=== PATIENT | male | born 1985 | race Caucasian/White ===

== ENCOUNTER → 2020-09-07 16:34 | Outpatient (CLI) | payer OTHER, SELFPAY ==
--- NOTE | 2020-09-07 16:43 | XR_ITS ---
PROCEDURE: XR CHEST 2V CLINICAL HISTORY: HEMOPTYSIS COMPARISON: No exams were available for comparison FINDINGS: The cardiomediastinal silhouette and pulmonary vascularity are within normal limits. There does appear to be an azygos fissure is a normal variant. There is slight increased density medial to the fissure in the right upper lobe medially which could be due to an area of volume loss or consolidation. The remaining lungs are clear. No acute bony abnormalities. IMPRESSION: Possible volume loss or consolidation within the right upper lobe medial to the azygos fissure. Consider follow-up to confirm resolution. Dictated by: Joshua Gómez MD 09/07/2020 17:00 Joshua Gómez MD in [place] 09/07/2020 17:00
== END ==
PROVIDERS: PCP Nurse Practitioner Family; Visit Provider Nurse Practitioner Family
DX: R04.2 Hemoptysis (principal)
CPT/HCPCS: 71046

== ENCOUNTER 2020-09-09 11:54 | Inpatient (IN) | payer BC, SELFPAY ==
[2020-09-09] VITALS (12 sets, daily range): BP systolic 106–138; BP diastolic 65–87; PULSE 66–90; RESP 16–20; TEMP 36.8–37.6; O2SAT 90–97; BMI 27.9; BMI 27.8
--- NOTE | 2020-09-09 12:08 | CT_ITS ---
PROCEDURE: CT ANGIO CHEST CLINCIAL INDICATION: PE? Shortness of air and cough, pneumonia, hemoptysis COMPARISON: CR XR CHEST 2V from 09/07/2020 TECHNIQUE: IV Contrast: 70ML Isovue 370 Axial images obtained with sagittal and coronal reformats. All CT scans at the facility use one or more dose reduction, viz: automated exposure control, ma/kV adjustment per patient size (including targeted exams where dose is matched to indication, i.e. head), or iterative reconstruction technique. FINDINGS: HEART AND MEDIASTINAL STRUCTURES: There is scattered small mediastinal and hilar lymph nodes. No evidence of pulmonary embolus, aortic aneurysm, or aortic dissection. LUNGS AND PLEURAL SPACES: There is diffuse ground-glass attenuation of both lungs upper and lower lobes. Right upper lobe has a somewhat cobblestone appearance. No pleural effusions. There is an azygos fissure is a normal variant.. In the left lung base there is a irregular parenchymal opacity and could be due to an area of atelectasis or scarring. BONY STRUCTURES: No acute bony abnormalities apparent. UPPER ABDOMEN: Unremarkable. ADDITIONAL FINDINGS: No other significant abnormalities. IMPRESSION: Diffuse ground-glass attenuation of the lungs with a somewhat cobblestone appearance of the right upper lobe. Diffuse pneumonia, viral pneumonia, Covid19 pneumonia, pulmonary edema, hypersensitivity pneumonitis, ARDS and other less common entities considered. No evidence of pulmonary embolus. Dictated by: Joshua Gómez MD 09/09/2020 12:48 Joshua Gómez MD in [place] 09/09/2020 12:48
--- NOTE | 2020-09-09 12:09 | HMH.EDSOB ---
ED Disposition Clinical Impression: Viral pneumonia Disposition: Admitted As Inpatient Condition on Discharge: Good - Critical Care Critical Care Time: No Attestation: On , the high probability of a clinically significant, sudden or life threatening deterioration of the following system(s) required my full and direct attention, intervention and personal management. The time I documented below is in addition to time spent performing reported procedures but includes the following listed in this critical care notation. Medical Decision Making - Medical Records Medical records reviewed: Yes: I reviewed the patient's medical records. - David Inquiry Pt receiving controlled substance: No Vital Signs: 09/09/20 11:55 09/09/20 13:00 09/09/20 13:30 Temperature 98.2 F Temperature Source Oral Pulse Rate 83 78 Pulse Rate [Left Radial] 83 Respiratory Rate 20 20 20 Blood Pressure 138/83 135/81 Blood Pressure [Right Arm] 122/75 Blood Pressure Mean 96 94 Blood Pressure Mean [Right Arm] 90 Blood Pressure Source [Right Arm] Automatic Cuff Blood Pressure Position [Right Arm] Sitting 02 Sat by Pulse Oximetry 91 L 96 96 Oxygen Delivery Method Room Air - Lab Data Lab results reviewed: Yes: I reviewed the patient's lab results. Lab Results 09/09/20 12:15: WBC 10.9 H, RBC 4.73, Hgb 13.8 L, Hct 42.8, MCV 90.4, MCH 29.3, MCHC 32.4, RDW 12.9, Plt Count 380, MPV 7.3 L, Neut % (Auto) 74.1, Lymph % (Auto) 17.4, [place] % (Auto) 5.1, Eos % (Auto) 2.9, Baso % (Auto) 0.5, Neut # (Auto) 8.1 H, Lymph # (Auto) 1.9, [place] # (Auto) 0.6, Eos # (Auto) 0.3, Baso # (Auto) 0.1 09/09/20 12:15: Sodium 141, Potassium 4.0, Chloride 107, Carbon Dioxide 28, Anion Gap 10.0, BUN 10, Creatinine 1.00, Estimated Creat Clear 130, Estimated GFR 86, Est GFR ( Amer) 103, Glucose 107 H, Calcium 8.9 Result diagrams: 09/09/20 12:15 09/09/20 12:15 Orders (Tests/Meds): ED MEDICATIONS Discontinued Medications Generic Name Dose Route Start Last Admin Trade Name Laurie PRN Reason Stop Dose Admin Iopamidol 70 ml 09/09/20 12:24 09/09/20 12:25 Iopamidol-370 (76%);100ml Bottle IV 09/09/20 12:25 70 ml ONCE ONE Administration Sodium Chloride 10 ml 09/09/20 12:24 09/09/20 12:25 Sodium Chloride 0.9% 10ml Syr (Rad Only) IV 09/09/20 12:25 10 ml ONCE ONE Administration Sodium Chloride 50 ml 09/09/20 12:24 09/09/20 12:26 0.9 % Sodium Chloride 50 Ml Vial IV 09/09/20 12:25 50 ml ONCE ONE Administration ORDERS Category Date Time Status Covid-19 Nasal PCR ([facility]) Routine Lab 09/09/20 12:15 Received - CT Data CT Scan: Chest Time Received: 13:[address] Reviewed: Yes: I have reviewed the patient's CT results Findings Narrative: Diffuse viral pneumonia, no pulmonary embolus Medical Decision Narrative: Patient with no clinically significant metabolic derangement. He is 89% on room air at rest, is now requiring oxygen. He is not a smoker and has no known history of pulmonary pathology. CT scan of the chest shows no pulmonary embolus, but does suggest diffuse viral pneumonia. Will need to be admitted for pulmonary toilet and further observation. I discussed this case with Dr. Walden and have placed a pulmonology consult per his request. Resp/SOB HPI - General Chief Complaint: Shortness of Breath/Dyspnea Stated Complaint: soa, dx w pneumonia Time Seen by Provider: 09/09/20 12:09 Mode of Arrival: Ambulatory Limitations: No Limitations Description of Symptoms (Recalled from ER Triage Doc. by RN): c/o soa and coughing blood for a few days. Was seen at his pcp 2 days ago and dx with PNA. Sent for a ct scan to r/o blood clot from the covid shot he recieved. - History of Present Illness This is a 34-year-old male with no significant past medical history who presents to the emergency department for 1 week of cough, shortness of breath and intermittent fever. He was seen prior to his visit today a few days a
[2020-09-09 12:26] LABS: Basophils # 0.1 K/mm3 (0-0.2); Basophils % 0.5 % (0.1-2.0); Eosinophils # 0.3 K/mm3 (0.0-0.4); Eosinophils % 2.9 % (0.1-12.0); Hematocrit 42.8 % (42.0-52.0); Hemoglobin 13.8 g/dL (14.1-18.0); Lymphocytes # 1.9 K/mm3 (0.7-4.5); Lymphocytes % 17.4 % (10-50); Mean Corpuscular HGB Conc 32.4 g/dL (31.8-35.4); Mean Corpuscular Hemoglobin 29.3 pg (27.0-31.2); Mean Corpuscular Volume 90.4 fl (80-94); Mean Platelet Volume 7.3 fl (7.4-10.4); Monocytes # 0.6 K/mm3 (0.1-1.0); Monocytes % 5.1 % (1.7-9.3); Neutrophils # 8.1 K/mm3 (1.8-7.8); Neutrophils % 74.1 % (37.0-80.0); Platelet Count 380 K/mm3 (142-424); Red Blood Count 4.73 M/mm3 (4.60-6.20); Red Cell Distribution Width 12.9 % (11.5-17.5); White Blood Count 10.9 K/mm3 (4.8-10.8)
[2020-09-09 12:36] LABS: Blood Urea Nitrogen 10 mg/dl (9-20); Calcium 8.9 mg/dl (8.4-10.2); Carbon Dioxide 28 mmol/L (22.0-30.0); Chloride 107 mmol/L (98-107); Creatinine Clearance Estimated 130 mL/min (50-200); Estimated Glomerular Filt Rate 86 ml/min (>60); GFR (African American) 103 ML/MIN (>60); Glucose 107 mg/dl (74-100); Sodium 141 mmol/L (136-145)
--- NOTE | 2020-09-09 13:23 | PC.NURSE ---
called lab for time limit on covid swab they advised 2 hrs.
--- NOTE | 2020-09-09 13:52 | PC.NURSE ---
Dr Wright spoke with Dr Walden
--- NOTE | 2020-09-09 15:30 | PC.NURSE ---
Pt and family informed that pt does not have covid. states that she is very concerned because his ct scan showed pulmonary edema and she is wanting to see if the backfiller is going to see him and have a possibility of being checked for histo. aware.
--- NOTE | 2020-09-09 16:06 | HMH.PULMCON ---
*Admission Date: 09/09/20 *Reason for consult:: Acute hypoxic respiratory failure *History of present illness: Mr. Mi is a 34-year-old male prior smoker around 96-[id number]-[id number] smoking/smoking presented to the emergency department with worsening hypoxic respiratory failure along with worsening cough and intermittent hemoptysis and pulmonary was called for further management. [facility] History I have reviewed the patient's past medical history: Yes Medical History: Denies:: Diabetes Mellitus Type 1, Diabetes Mellitus Type 2, Seizures *Have you ever received a pneumonia vaccine?: No *Have you received a flu vaccine this season?: No Other Medical History: Reports: Other Laterality Cases: Left: Other (left arm fracture c placement of pins and screws -2000) Other Surgeries: Yes: Other Amputation: No Fractures: Yes - *Social History Smoking Status: Former smoker Alcohol Intake: current Alcohol Intake Frequency:: a few times a week Substance Use Type: unknown *Occupational Status:: student *Travel in the last 8 weeks: None Family Hx:: Non-contributory ROS - Cons Denies anorexia, Denies body ache(s) - Eyes Denies blind spots, Denies blurry vision - ENT Denies difficulty swallowing - Card Reports shortness of breath, Reports shortness of breath with activity, Denies chest pain at rest - Resp Respiratory: Reports chest congestion, Reports cough, Reports dyspnea on exertion, Reports coughing up blood, Reports pain on inspiration - GI Gastrointestingal: Denies: abdominal pain - [place] Musculoskeletal: Denies back pain, Denies deformity Meds Home Medications Medication Instructions Recorded Confirmed Type Amoxicillin/Potassium Clav 875 mg PO BID 09/09/20 09/09/20 History [Amox-Clav 875-125 mg Tablet] Allergies Allergy/AdvReac Type Severity Reaction Status Date / Time medical tape Allergy rash Uncoded 02/03/19 10:55 around site Exam - Constitutional Constitutional:: Present: comfortable, healthy appearing - HENMT Exam HENMT: Present: normocephalic, atraumatic - Eye Exam Eyes:: Present: normal appearance both eyes and related structures - Neck Exam Neck:: Present: normal visual inspection - Respiratory Exam Respiratory:: Present: able to speak in complete sentences, respiratory distress, crackles - Cardiovascular Exam Cardiac:: Present: S1, S2 - GI Exam GI:: Present: soft - Skin Exam Skin: Present: warm, no rash - Neurological Exam Neurological: Present: awake, normal cognition - Extremities Exam Extremities: Present: no cyanosis, no clubbing, no edema Internal Medicine - CN: Reslt - Labs CBC & Chem 7: 09/09/20 12:15 09/09/20 12:15 Labs: Short CBC 09/09/20 Range/Units 12:15 WBC 10.9 H (4.8-10.8) K/mm3 Hgb 13.8 L (14.1-18.0) g/dL Hct 42.8 (42.0-52.0) % Plt Count 380 (142-424) K/mm3 BMP 09/09/20 12:15 Sodium 141 Potassium 4.0 Chloride 107 Carbon Dioxide 28 BUN 10 Creatinine 1.00 Glucose 107 H Calcium 8.9 Assessment and Plan - Assessment and plan all Dx Assessment and Plan for all problems:: #Acute hypoxic respiratory failure: #Atypical pneumonia: Mr. Mi is a 34-year-old male prior smoker around 53-[id number]-pzao smoking/smoking presented to the emergency department with worsening hypoxic respiratory failure. Further questioning patient stated that he is explained symptoms for the last 5 days gradually getting worse with worsening shortness of breath and intermittent coughing up blood mixed with sputum. He also complains of near syncope episode yesterday. They had been checking this patient saturation at home during exertion and they were around 80%. Patient currently saturating 90 to 92% at rest today. Patient admits sick contacts in the family has been diagnosed with adenovirus recently. Since family is also concerned about fungal exposure as they were remodeling an old house currently. ILD review of systems negat
--- NOTE | 2020-09-09 16:09 | PC.NURSE ---
Report given Elton DORADO
[2020-09-09 16:38] LABS: Adenovirus,PCR Not Detected (NotDetected); Bordetella Pertussis Not Detected (NotDetected); Chlamydophila Pneumoniae, PCR Not Detected (NotDetected); Coronavirus 229E Not Detected (NotDetected); Coronavirus NL63 Not Detected (NotDetected); Coronavirus OC43 Not Detected (NotDetected); Coronovirus HKU1,PCR Not Detected (NotDetected); Human Metapneumovirus Not Detected (NotDetected); Influenza A, PCR Not Detected (NotDetected); Influenza AH1, 2009 Not Detected (NotDetected); Influenza AH1, PCR Not Detected (NotDetected); Influenza AH3,PCR Not Detected (NotDetected); Influenza B, PCR Not Detected (NotDetected); Mycoplasma Pneumoniae, PCR Not Detected (NotDetected); Parainfluenza 1, PCR Not Detected (NotDetected); Parainfluenza 2, PCR Not Detected (NotDetected); Parainfluenza 3, PCR Not Detected (NotDetected); Parainfluenza 4, PCR Not Detected (NotDetected); Respiratory Syncytial Virus Not Detected (NotDetected)
--- NOTE | 2020-09-09 17:15 | HMH.HP ---
*Admission Date: 09/09/20 *Chief complaint: /Shortness of air *History of present illness: Mr. Mi is a 34-year-old male prior smoker around 90-[id number]-rinl smoking/smoking presented to the emergency department with worsening hypoxic respiratory failure. Further questioning patient stated that he is explained symptoms for the last 5 days gradually getting worse with worsening shortness of breath and intermittent coughing up blood mixed with sputum. He also complains of near syncope episode yesterday. They had been checking this patient saturation at home during exertion and they were around 80%. Patient currently saturating 90 to 92% at rest today. Patient admits sick contacts in the family has been diagnosed with adenovirus recently. Since family is also concerned about fungal exposure as they were remodeling an old house currently. ILD review of systems negative. Denies any family history of autoimmune disorders. Denies any hematuria. Above note per pulmonary. Agree with note. Patient presented to our office recently with cough and congestion, treated for viral infection, not improving. Chest x-ray with infiltrate, worsening exercise tolerance and dyspnea, instructed to go to the emergency department. Admitted as noted above. [facility] History I have reviewed the patient's past medical history: Yes Medical History: Denies:: Diabetes Mellitus Type 1, Diabetes Mellitus Type 2, Seizures *Have you ever received a pneumonia vaccine?: No *Have you received a flu vaccine this season?: Yes Other Medical History: Reports: Other Laterality Cases: Left: Other Other Surgeries: Yes: Other Amputation: No Fractures: Yes - *Social History Last grade of school completed: Advanced degree Smoking Status: Former smoker Smoking End Date: 04/23/2017 Alcohol Intake: current Alcohol Intake Frequency:: a few times a week Substance Use Type: unknown *Occupational Status:: unemployed Housing: house Household Members: spouse *Travel in the last 8 weeks: None Family Hx:: Cancer, Hyperlipidemia Review of Systems - Review of Systems Review of systems:: pertinent systems reviewed and negative unless documented below Meds Home Medications Medication Instructions Recorded Confirmed Type Amoxicillin/Potassium Clav 875 mg PO BID 09/09/20 09/09/20 History [Amox-Clav 875-125 mg Tablet] Allergies Allergy/AdvReac Type Severity Reaction Status Date / Time medical tape Allergy rash Uncoded 02/03/19 10:55 around site Exam Vital signs and Labs for Last 24 Hours: Temp Pulse Resp BP Pulse Ox 98.6 F 66 16 125/83 96 09/09/20 16:35 09/09/20 16:35 09/09/20 16:35 09/09/20 16:35 09/09/20 15:15 Laboratory Results - last 24 hr 09/09/20 12:15: WBC 10.9 H, RBC 4.73, Hgb 13.8 L, Hct 42.8, MCV 90.4, MCH 29.3, MCHC 32.4, RDW 12.9, Plt Count 380, MPV 7.3 L, Neut % (Auto) 74.1, Lymph % (Auto) 17.4, [place] % (Auto) 5.1, Eos % (Auto) 2.9, Baso % (Auto) 0.5, Neut # (Auto) 8.1 H, Lymph # (Auto) 1.9, [place] # (Auto) 0.6, Eos # (Auto) 0.3, Baso # (Auto) 0.1 09/09/20 12:15: Sodium 141, Potassium 4.0, Chloride 107, Carbon Dioxide 28, Anion Gap 10.0, BUN 10, Creatinine 1.00, Estimated Creat Clear 130, Estimated GFR 86, Est GFR ( Amer) 103, Glucose 107 H, Calcium 8.9 I & O for Last 24 hours: Intake & Output 09/07/20 09/08/20 09/09/20 09/10/20 11:59 11:59 11:59 11:59 Weight 195 lb 194 lb 8 oz Microbiology Reports for the Last 24 Hours: Microbiology 09/09/20 12:15 Nasopharyngeal Coronavirus COVID-19 PCR - Final - Constitutional no acute distress - *Routine HEENT Exam Head: Present: normocephalic Eye: Present: EOMI, PERRL ENT: Present: mucous membranes moist - *Routine Neck Exam Present: supple. Absent: lymphadenopathy - *Routine Respiratory Exam Present: rhonchi, wheezes Comments: In upper lobes - *Routine Cardiovascular Exam Present: RRR - *Routine Abdominal Exam Present: soft, normoactive dennis
[2020-09-09 17:21] LABS: INR 0.98 (0.9-1.1); Prothrombin Time 11.6 seconds (10.1-12.5)
[2020-09-09 17:45] LABS: Urea Nitrogen,Urine Random 468 mg/dl (Not Estab.)
[2020-09-09 17:50] LABS: Rhinovirus/Enterovirus Detected (NotDetected)
[2020-09-10] VITALS (19 sets, daily range): BP systolic 99–145; BP diastolic 45–70; PULSE 64–79; RESP 16–19; TEMP 36.1–37.7; O2SAT 89–95; BMI 28.0
--- NOTE | 2020-09-10 04:47 | PC.NURSE ---
pt alert and oriented. independent with care. pt stated one episode of bad coughing. 3lnc in use at this time. o2 sat remain above 90%. pt showered this shift. iv SL. temp has slightly treaded up and prn med to be given per jun. all other vss. call light in reach. will continue to monitor
--- NOTE | 2020-09-10 04:49 | PC.NURSE ---
all charting and care given by coleman padron was supervised by bj liang
--- NOTE | 2020-09-10 07:19 | HMH.PHAINT ---
Used list from [facility] to clarify home medication list
--- NOTE | 2020-09-10 07:21 | P.CONPHA_ITS ---
[facility] Pharmacy VTE Monitoring - Patient Demographics Admission date: 09/10/20 Report Date: 09/10/20 Time: 07:21 Allergies/Adverse Reactions: Patient Allergies medical tape Allergy (Uncoded 02/03/19 10:55) rash around site Height: 1.78 m Weight: 88.904 kg Patient Problems: Current Active Problems Viral pneumonia (Acute) - VTE Risk Labs: VTE Related Lab Results Hgb 13.8 g/dL (14.1-18.0) L 09/09/20 12:15 Hct 42.8 % (42.0-52.0) 09/09/20 12:15 Plt Count 380 K/mm3 (142-424) 09/09/20 12:15 PT 11.6 seconds (10.1-12.5) 09/09/20 16:49 INR 0.98 (0.9-1.1) 09/09/20 16:49 BUN 10 mg/dl (9-20) 09/09/20 12:15 Creatinine 1.00 mg/dl (0.66-1.25) 09/09/20 12:15 Estimated Creat Clear 130 mL/min (50-200) 09/09/20 12:15 Clinical Trial Participant: No - Prophylaxis VTE Prophylaxis Ordered?: Yes Types of VTE Prophylaxis: TEDS Knee High
--- NOTE | 2020-09-10 08:23 | P.PN_ITS ---
Internal Medicine - PN: Rosa *Date: 09/10/20 *Time: 08:23 Interval history: Patient rested well overnight, did have a low-grade temperature. Results of labs reviewed. Exam Vital signs and Labs for Last 24 Hours: Temp Pulse Resp BP Pulse Ox 99.8 F H 71 18 99/45 L 94 L 09/10/20 03:44 09/10/20 03:44 09/10/20 03:44 09/10/20 03:44 09/10/20 08:00 Laboratory Results - last 24 hr 09/09/20 12:15: WBC 10.9 H, RBC 4.73, Hgb 13.8 L, Hct 42.8, MCV 90.4, MCH 29.3, MCHC 32.4, RDW 12.9, Plt Count 380, MPV 7.3 L, Neut % (Auto) 74.1, Lymph % (Auto) 17.4, [place] % (Auto) 5.1, Eos % (Auto) 2.9, Baso % (Auto) 0.5, Neut # (Auto) 8.1 H, Lymph # (Auto) 1.9, [place] # (Auto) 0.6, Eos # (Auto) 0.3, Baso # (Auto) 0.1 09/09/20 12:15: Sodium 141, Potassium 4.0, Chloride 107, Carbon Dioxide 28, Anion Gap 10.0, BUN 10, Creatinine 1.00, Estimated Creat Clear 130, Estimated GFR 86, Est GFR ( Amer) 103, Glucose 107 H, Calcium 8.9 09/09/20 12:15: Chlamy pneumoniae PCR Not detected, Adenovirus (PCR) Not detected, B. pertussis DNA (PCR) Not detected, Coronavirus OC43 (PCR) Not detected, Coronavirus HKU1 (PCR) Not detected, Coronavirus 229E (PCR) Not detected, Coronavirus NL63 (PCR) Not detected, Human Metapneumovir PCR Not detected, Influenza A (H1) PCR Not detected, Influ A (H1N1/09) PCR Not detected, Influenza A (H3) PCR Not detected, Influenza Type A (PCR) Not detected, Influenza Type B (PCR) Not detected, M. pneumoniae (PCR) Not detected, Parainfluenza 1 (PCR) Not detected, Parainfluenza 2 (PCR) Not detected, Parainfluenza 3 (PCR) Not detected, Parainfluenza 4 (PCR) Not detected, RSV (PCR) Not detected, Entero/Rhino (PCR) Detected A 09/09/20 16:49: PT 11.6, INR 0.98 09/09/20 17:05: Ur Random Urea Nitrogn 468 I & O for Last 24 hours: Intake & Output 09/07/20 09/08/20 09/09/20 09/10/20 11:59 11:59 11:59 11:59 Intake Total 740 / 740 Balance 740 / 740 Weight 195 lb 196 lb Microbiology Reports for the Last 24 Hours: Microbiology 09/09/20 17:08 Sputum - Expectorated Sputum Gram Stain - Final 09/09/20 12:15 Nasopharyngeal Coronavirus COVID-19 PCR - Final Narrative: Patient is comfortable, noncyanotic on oxygen. Alert, oriented. ENT exam clear. Heart rate regular. Lungs have rhonchi and crackles in the right upper lung field. However aerating fairly symmetrically. No rash, abdomen soft, neurologically intact. Assessment and Plan (1) Viral pneumonia Status: Acute Category: Medical Code(s): J12.9 - Viral pneumonia, unspecified - Assessment and plan all Dx Assessment and Plan for all problems:: Stable. Await bronchoscopy. PCR testing shows rhino/enterovirus.
--- NOTE | 2020-09-10 10:01 | HMH.PULMPN ---
Internal Medicine - PN: Subj *Date: 09/10/20 *Time: 10:01 Interval history: No acute respiratory vents overnight. Exam - Constitutional Constitutional:: Present: no acute distress, comfortable - HENMT Exam HENMT: Present: normocephalic, atraumatic - Eye Exam Eyes:: Present: normal appearance both eyes and related structures - Neck Exam Neck:: Present: normal visual inspection, thyroid normal - Respiratory Exam Respiratory:: Present: able to speak in complete sentences, no respiratory distress, normal respiratory effort, crackles. Absent: accessory muscle use, wheezing - Cardiovascular Exam Cardiac:: Present: S1, S2 - GI Exam GI:: Present: soft, no hepatosplenomegaly - Skin Exam Skin: Present: warm, no rash, dry - Neurological Exam Neurological: Present: alert, awake, normal cognition - Extremities Exam Extremities: Present: no cyanosis, no clubbing, no edema - Psychiatric Exam Psychiatric: Present: normal affect Assessment and Plan (1) Viral pneumonia Status: Acute Category: Medical Code(s): J12.9 - Viral pneumonia, unspecified - Assessment and plan all Dx Assessment and Plan for all problems:: #Acute hypoxic respiratory failure: #Atypical pneumonia: #Viral pneumonia: Mr. Mi is a 34-year-old male prior smoker around 45-cmwb-pcge smoking/smoking presented to the emergency department with worsening hypoxic respiratory failure. Experiencing symptoms for the last 5 days prior to presentation, gradually getting worse with worsening shortness of breath and intermittent coughing up blood mixed with sputum. Patient admits sick contacts in the family has been diagnosed with adenovirus recently. Since family is also concerned about fungal exposure as they were remodeling an old house currently. ILD review of systems negative. Denies any family history of autoimmune disorders. Denies any hematuria. Denies any inhalational exposure. COVID-19 PCR resulted negative. Patient received his vaccination. No peripheral eosinophilia CTA performed here reviewed today did not show any evidence of pulmonary them showed bilateral diffuse groundglass opacities with evidence of traction bronchiectasis in the lower lobes. Respiratory viral PCR positive for entero-/rhinovirus. Patient denies any new respiratory complaints. Patient still requiring oxygen supplementation to maintain his saturations above 90%. Patient's current acute hypoxic respiratory failure is likely from viral pneumonia. Plan: -Continue ceftriaxone and doxycycline, can de-escalate levofloxacin on discharge awaiting BAL Gram stain to complete 5 day course (sputum Gram stain showed rare gram-positive cocci in pairs and clusters) - Comprehensive respiratory viral panel - F / Urine histoplasma antigen - F/U BC x2 - Urinalysis with microscopic. - F/U Basic autoimmune work-up including CRP, YARI, ANCA, RF and CCP. - Follow with bronchial alveolar lavage Gram stain SHRAVAN AFB staining along with cultures and cytopathology. Thank you for involving pulmonary in this patient care. We will continue to follow and see in the clinic in 7 to 10 days post discharge.
--- NOTE | 2020-09-10 15:27 | PC.NURSE ---
Patient resting comfortably in bed at this time, on 3LNC, O2 saturations 90-95% this shift, does not appear to be any distress, he reports his breathing has improved since admission, bronchoscopy with washing completed this shift, pt tolerated well, vital signs remain stable, no s/s of distress noted, will continue to monitor.
--- NOTE | 2020-09-10 18:32 | PC.NURSE ---
INCREASED O2 TO 3.5L N/C
--- NOTE | 2020-09-10 23:01 | HMH.BRONCH ---
- Procedure: Date: 09/10/20 Patient Date of :: 1985 Procedure Performed:: Bronchoscopy with bronchoalveolar lavage Indications:: Atypical Pneumonia Performing Provider:: Alan Watson MD Referring Provider:: Dr. Srivastava Sedation:: Conscious Sedation Procedure:: Clean bronchoscpy was advanced through the left nares and advanced to the vocal cords. 5 cc of 1% lidocaine was instilled and bronchoscopy was advance in to trachea. 5ml of 1% lidocaine was instilled each in main trachea, right and let main stem bronchi. Airways were examined upto segmental bronchi and appeared grossly normal with no evidence of excessive secretions or bleeding. Sequential lavage was performed in RML with total of 60 cc NS instilled with return of 30 cc clear fluid. NO evidence of DAH noted. BAL sample was sent for cell count and differential, Bacterial, fungal and AFB stains and culture along with cytopathology. Patient tolerated the procedure well. He in total received 3 mg of versed and 75 mcg of fentanyl for this procedure. Findings:: See the procedure note Recommendations:: See todays progress note for plan of care Complications:: None Estimated blood obtained (mL): 0
[2020-09-11] VITALS: BP 98/59; PULSE 74; RESP 16; TEMP 37.1; O2SAT 93
--- NOTE | 2020-09-11 01:17 | PC.NURSE ---
He is A&Ox3. He has been sitting up in bed. He ambulates independently with steady gait. He reports a productive cough with thick, yellow blood-tinged sputum. She reports SOA with exertion but states it only occurs occasionally. He reports that he had one episode of epitaxis at the beginning of the shift. Humidification was added to his oxygen and no further occurrences have been reported. He denies pain. Reports that his last BM was on 09/10/20.
[2020-09-11 04:00] VITALS: BP 115/72; PULSE 75; RESP 16; TEMP 37.1; O2SAT 91
[2020-09-11 05:00] VITALS: BMI 28.0
[2020-09-11 08:00] VITALS: BP 117/68; PULSE 73; RESP 19; TEMP 37.2; O2SAT 92; O2SAT 95
--- NOTE | 2020-09-11 09:06 | HMH.DCSUM ---
General - General Admission date:: 09/09/20 Discharge date: 09/11/20 HPI HPI: Mr. Mi is a 34-year-old male prior smoker around [id number] smoking/smoking presented to the emergency department with worsening hypoxic respiratory failure. Further questioning patient stated that he is explained symptoms for the last 5 days gradually getting worse with worsening shortness of breath and intermittent coughing up blood mixed with sputum. He also complains of near syncope episode yesterday. They had been checking this patient saturation at home during exertion and they were around 80%. Patient currently saturating 90 to 92% at rest today. Patient admits sick contacts in the family has been diagnosed with adenovirus recently. Since family is also concerned about fungal exposure as they were remodeling an old house currently. ILD review of systems negative. Denies any family history of autoimmune disorders. Denies any hematuria. Above note per pulmonary. Agree with note. Patient presented to our office recently with cough and congestion, treated for viral infection, not improving. Chest x-ray with infiltrate, worsening exercise tolerance and dyspnea, instructed to go to the emergency department. Admitted as noted above. Hospital Course Hospital Course: Patient was admitted, COVID-19 testing negative, placed on doxycycline and ceftriaxone for community-acquired pneumonia. However viral pneumonia was primary diagnosis. PCR testing did return showing enteroviral PCR positivity in nasal specimen. Pulmonary evaluated patient and recommended bronchoscopy. This was done, see procedure notes and recommendations. Patient tolerated this well. Over the next 24 hours was able to wean off oxygen. This morning was able to be off oxygen, took a shower, up and about the room with O2 saturations above 92%. Still sort of wheezy. Plan will be to discharge home on a 5-day course of Levaquin, Symbicort and ProAir for wheezing. Follow-up with pulmonary next Sunday and in my office the week after that. Objective Vital signs: Temp Pulse Resp BP Pulse Ox 99.0 F 73 19 117/68 92 L 09/11/20 08:00 09/11/20 08:00 09/11/20 08:00 09/11/20 08:00 09/11/20 08:00 no acute distress - *Routine HEENT Exam Head: Present: normocephalic Eye: Present: EOMI, PERRL ENT: Present: mucous membranes moist - *Routine Neck Exam Present: supple - *Routine Respiratory Exam Present: rhonchi, wheezes Comments: No respiratory distress on observation. No tachypnea, no retraction, no prolonged expiratory phase. - *Routine Cardiovascular Exam Present: RRR - *Routine Abdominal Exam Present: soft, normoactive bowel sounds. Absent: tenderness - *Routine Extremities Exam Absent: cyanosis, clubbing, edema - *Routine Skin Exam Present: warm. Absent: rash - Detailed Eye Exam Eyelids: Bilateral normal inspection Results Labs on day of discharge: Preliminary micro results at discharge 09/09/20 17:08 Sputum Culture - Preliminary Sputum - Expectorated Sputum DS: Diagnosis - Discharge Diagnosis (1) Viral pneumonia Status: Acute Discharge Plan - Patient Discharge Instructions ACTIVITY: Continue current activity DIET: continue same diet Patient Instructions: Pneumonia-Adult, DI for Bronchoscopy, Diagnostic, Enterovirus D68 Infection, DI for Enterovirus D68, DI for COVID-19 (Suspected or Confirmed ) - Follow up Plan Follow up with: Alan Watson MD [Physician] - 09/15/20 3:45 pm Peng Srivastava MD [Staff Physician] - 09/22/20 10:00 am Disposition: Home, Self-Care Condition at discharge:: Improved Home Medications: Home Medications Medication Instructions Recorded Confirmed Type Amoxicillin/Potassium Clav 875 mg PO BID 09/09/20 09/09/20 History [Amox-Clav 875-125 mg Tablet] Albuterol Sulfate [Proair Hfa] 8.5 gm IH Q4HP PRN #1 hfa.aer.ad 09/11/20 Rx Budesonide/Formoterol Fumarate 2 puf
[2020-09-13 14:19] LABS: Histoplasma Gal'mannan Ag Ur <0.5 (<0.5 ng/mL)
[2020-09-13 17:09] LABS: Cytoplasmic (C-ANCA) <1:20 titer (Neg:<1:20)
[2020-09-13 17:09] LABS: Body Fluid Culture, Sterile Not indicated. (.); Organism ID Not indicated. (.); Specimen Source Urine (.); Streptococcus pneumoniae Ag Negative (Negative)
[2020-09-14 04:13] LABS: Legionella pneumophila Urinary Negative (Negative)
[2020-09-14 04:13] LABS: Perinuclear (P-ANCA) <1:20 titer (Neg:<1:20)
[2020-09-14 04:15] LABS: Anti-Cyclic Citrullinated Pept 4 units (0-19)
[2020-09-18 20:21] LABS: Aspergillus flavus Negative (Neg:<1:1); Aspergillus fumigatus Negative (Neg:<1:1); Aspergillus niger Negative (Neg:<1:1); Blastomyces Antibody Negative (Neg:<1:1)
[2020-10-10 10:26] LABS: Antinuclear Antibodies (ANA) NEGATIVE
[2020-11-19 09:48] LABS: Cell Count + Differential, BAL SEE REPORT
== END 2020-09-11 09:45 | disposition home or self-care (01) | DRG 193 ==
LOC: ER 13:59 → 2ND 14:21
PROVIDERS: Internal Medicine Pulmonary Disease; Admitting Provider Internal Medicine Adolescent Medicine; Emergency Provider Emergency Medicine; PCP Nurse Practitioner Family; Visit Provider Internal Medicine Adolescent Medicine
PROC: 0B9D8ZX Drainage of Right Middle Lung Lobe, Via Natural or Artificial Opening Endoscopic, Diagnostic (ICD-10-PCS; principal; 2020-09-10 09:00)
DX: J12.9 Viral pneumonia, unspecified (principal); J96.01 Acute respiratory failure with hypoxia; Z87.891 Personal history of nicotine dependence
CPT/HCPCS: 31624; 36415; 71275; 80048; 84540; 85025; 85610; 86038; 86200; 86225; 86235; 86256; 86431; 86606; 86612; 87040; 87070; 87102; 87116; 87186; 87205; 87206; 87220; 87385; 87486; 87581; 87633; 87641; 87798; 87899; 89051; 94760; 96365; 96366; 96375; 99152; 99284; J1335; Q9967; U0003

== ENCOUNTER 2020-09-21 15:29 | Observation (INO) | payer BC, SELFPAY ==
[2020-09-21 15:37] VITALS: BP 116/69; PULSE 99; RESP 18; TEMP 37.7; O2SAT 90; BMI 27.8
--- NOTE | 2020-09-21 17:19 | XR_ITS ---
PROCEDURE: XR CHEST 2V CLINICAL HISTORY: SOA COMPARISON: CR XR CHEST 2V from 09/07/[address] ANGIO CHEST from 09/09/2020 FINDINGS: The cardiomediastinal silhouette and pulmonary vascularity are within normal limits. The lungs are clear without infiltrates, suspicious nodules, or pleural effusions. No acute bony abnormalities. IMPRESSION: No acute findings. Dictated by: Joshua Gómez MD 09/21/2020 18:24 Joshua Gómez MD in [facility] 09/21/2020 18:24
--- NOTE | 2020-09-21 18:03 | HMH.HP ---
*Admission Date: 09/21/20 *Chief complaint: Hypoxia, recurrent pneumonia *History of present illness: Mr. Mi is a 35-year-old male who is generally previously healthy. Former smoker. Presented to the office today with increased shortness of breath, fever, fatigue and muscle aches worsening over the past 2 days. Of note he was first diagnosed on September 08 with similar symptoms. Started on Augmentin for 2 days but ended up getting admitted to [facility] for concern for pneumonia, switch to Levaquin and discharged home after 2 days hospitalization and performance of bronchoscopy with BAL. Diagnosed with entero-/rhinovirus respiratory infection. Had been doing well until finishing Levaquin on Sunday. Cough has become more productive with yellow-green sputum. Patient presented to the office with his . States that she has been checking his oxygen regularly but unfortunately he had developed some hypoxemia over the past 48 hours with saturations in the mid 80s at rest and is good his low 90s while awake. Fever T-max 100.8 last night. Has been using Symbicort daily but no albuterol. Received Covid vaccine in June ([employer]) Complains of mild shortness of breath, headaches, body aches. No diarrhea, chest pain, palpitations, lower extremity edema. Admitted for further management of acute hypoxemia and concern for recurrent pneumonia versus post viral pneumonia. [facility] History I have reviewed the patient's past medical history: Yes Medical History: Denies:: Diabetes Mellitus Type 1, Diabetes Mellitus Type 2, Seizures *Have you ever received a pneumonia vaccine?: No *Have you received a flu vaccine this season?: No Other Medical History: Reports: Other Laterality Cases: Left: Other Other Surgeries: Yes: Other Amputation: No Fractures: Yes (L ARM) - *Social History Last grade of school completed: Advanced degree Smoking Status: Former smoker Alcohol Intake: current Alcohol Intake Frequency:: holidays/special occasions only Substance Use Type: unknown *Occupational Status:: other Housing: house Household Members: spouse *Travel in the last 8 weeks: None Family Hx:: Diabetes, Heart Attack, Stroke Review of Systems - Review of Systems Review of systems:: pertinent systems reviewed and negative unless documented below (14 point review of systems performed, pertinent positives and negatives as per HPI) Meds Home Medications Medication Instructions Recorded Confirmed Type Albuterol Sulfate [Proair Hfa] 8.5 gm IH Q4HP PRN #1 hfa.aer.ad 09/11/20 09/15/20 Rx Budesonide/Formoterol Fumarate 2 puffs IH BID #1 inh 09/11/20 09/15/20 Rx [Symbicort 160-4.5 Mcg Inhaler] levoFLOXacin [Levaquin 500mg 500 mg PO DAILY #7 tab 09/11/20 09/15/20 Rx tab] Allergies Allergy/AdvReac Type Severity Reaction Status Date / Time medical tape Allergy rash Uncoded 02/03/19 10:55 around site Exam Vital signs and Labs for Last 24 Hours: Temp Pulse Resp BP Pulse Ox 99.8 F H 99 H 18 116/69 90 L 09/21/20 15:37 09/21/20 15:37 09/21/20 15:37 09/21/20 15:37 09/21/20 15:37 I & O for Last 24 hours: Intake & Output 09/18/20 09/19/20 09/20/20 09/21/20 23:59 23:59 23:59 23:59 Intake Total 360 / 360 Balance 360 / 360 Weight 87.997 kg - Constitutional no acute distress - *Routine HEENT Exam Head: Present: normocephalic Eye: Present: EOMI, PERRL ENT: Present: mucous membranes moist - *Routine Neck Exam Present: supple. Absent: lymphadenopathy - *Routine Respiratory Exam Present: rhonchi, crackles. Absent: diminished air movement - *Routine Cardiovascular Exam Present: RRR - *Routine Abdominal Exam Present: soft, normoactive bowel sounds. Absent: tenderness - *Routine Rectal Exam Rectal:: deferred - *Routine Genitalia Exam Genitalia:: deferred - *Routine Extremities Exam Absent: cyanosis, clubbing, edema - *Routine Skin Exam Present: warm.
[2020-09-21 18:31] LABS: Alanine Aminotransferase 49 U/L (12-78); Albumin Level 3.9 g/dl (3.5-5.0); Albumin/Globulin Ratio 1.1 (1.1-1.8); Alkaline Phosphatase 82 U/L (38-126); Anion Gap 9.9 mEq/L (5-15); Aspartate Amino Transferase 42 U/L (17-59); Bilirubin,Total 0.9 mg/dl (0.2-1.3); Blood Urea Nitrogen 12 mg/dl (9-20); Calcium 8.7 mg/dl (8.4-10.2); Carbon Dioxide 25 mmol/L (22.0-30.0); Chloride 106 mmol/L (98-107); Creatinine Clearance Estimated 128 mL/min (50-200); Estimated Glomerular Filt Rate 85 ml/min (>60); GFR (African American) 103 ML/MIN (>60); Globulin 3.5 g/dL (1.3-3.2); Glucose 94 mg/dl (74-100); Magnesium 1.7 mg/dl (1.6-2.3); Potassium 3.9 mmoL/L (3.5-5.1); Sodium 137 mmol/L (136-145); Total Protein,Serum 7.4 g/dl (6.3-8.2)
[2020-09-21 18:39] LABS: Basophils # 0.1 K/mm3 (0-0.2); Basophils % 0.2 % (0.1-2.0); Eosinophils # 0.3 K/mm3 (0.0-0.4); Eosinophils % 1.4 % (0.1-12.0); Hematocrit 40.6 % (42.0-52.0); Hemoglobin 13.3 g/dL (14.1-18.0); Lymphocytes # 1.6 K/mm3 (0.7-4.5); Mean Corpuscular HGB Conc 32.9 g/dL (31.8-35.4); Mean Corpuscular Hemoglobin 29.2 pg (27.0-31.2); Mean Corpuscular Volume 88.7 fl (80-94); Monocytes # 0.8 K/mm3 (0.1-1.0); Neutrophils # 16.8 K/mm3 (1.8-7.8); Neutrophils % 86.4 % (37.0-80.0); Platelet Count 376 K/mm3 (142-424); Red Blood Count 4.57 M/mm3 (4.60-6.20); Red Cell Distribution Width 13.3 % (11.5-17.5); White Blood Count 19.5 K/mm3 (4.8-10.8)
[2020-09-21 18:42] LABS: MANUAL DIFFERENTIAL MANUAL DIFFERENTIAL (MANUAL DIFF)
--- NOTE | 2020-09-21 19:30 | PC.NURSE ---
Pt direct admit from Dr. Sy's office. C/o fever, SOA, low O2 sat since ABX were completed. Upon arrival to room, room air = 90%, pt placed on 2 L O2 per nasal cannula. IV placed in RAC, blood drawn and sent to lab. Abx admin per JUN. Pt currently sitting up in bed watching TV. No needs voiced. Denies being SOA @ this time. has been @ bedside to visit.
[2020-09-21 19:56] LABS: Eosinophils % 1 % (0-3); Lymphocytes % 9 % (10-50); Monocytes % 4 % (2-9); Neutrophils % 86 % (42-76); Total Cells Counted 100
[2020-09-21 19:57] LABS: Platelet Estimate Normal; RBC Morphology Normal
[2020-09-21 20:00] VITALS: BP 114/67; PULSE 90; RESP 20; TEMP 36.9; O2SAT 81
[2020-09-21 21:30] VITALS: PULSE 74; PULSE 80; O2SAT 93
[2020-09-21 21:46] LABS: Lactic Acid 0.9 mmol/L (0.7-2.1)
[2020-09-22 00:27] LABS: Mycoplasma Pneumo IGM (Rapid) Non-Reactive (Non-Reactiv)
--- NOTE | 2020-09-22 03:09 | PC.NURSE ---
A/O x4, pt has not complained of pain this shift. pt stated he occ felt short of breath. Lungs have fine crackles in the bases, currently on 3.5 L on NC, stats in low 90s. pt has been spot checked q1-2 hours. IV patent. pt says he feels more out of breath after ambulating to the bathroom. no concerns at this time.
[2020-09-22 04:00] VITALS: BP 93/53; PULSE 64; RESP 19; TEMP 36.7; O2SAT 92
[2020-09-22 05:34] VITALS: BMI 27.8
--- NOTE | 2020-09-22 07:11 | HMH.PHAVTE ---
[facility] Pharmacy VTE Monitoring - Patient Demographics Admission date: 09/21/20 Report Date: 09/22/20 Time: 07:11 Allergies/Adverse Reactions: Patient Allergies medical tape Allergy (Uncoded 02/03/19 10:55) rash around site Height: 1.78 m Weight: 87.997 kg Patient Problems: Current Active Problems Acute hypoxemic respiratory failure (Acute) Recurrent pneumonia (Acute) Neutrophilic leukocytosis (Acute) - VTE Risk Labs: VTE Related Lab Results Hgb 13.3 g/dL (14.1-18.0) L 09/21/20 16:00 Hct 40.6 % (42.0-52.0) L 09/21/20 16:00 Plt Count 376 K/mm3 (142-424) 09/21/20 16:00 BUN 12 mg/dl (9-20) 09/21/20 16:00 Creatinine 1.00 mg/dl (0.66-1.25) 09/21/20 16:00 Estimated Creat Clear 128 mL/min (50-200) 09/21/20 16:00 Was VTE Risk Assessment Performed: Yes VTE Score: 1 Clinical Trial Participant: No - Prophylaxis VTE Prophylaxis Ordered?: Yes Types of VTE Prophylaxis: TEDS Knee High
--- NOTE | 2020-09-22 07:13 | HMH.PHAINT ---
CLARIFIED HOME MED LIST USING LIST FROM OUTPATIENT PHARMACY AND PT INTERVIEW
--- NOTE | 2020-09-22 07:43 | PC.NURSE ---
Reviewed chart this AM it was noted that covid swab was not resulted, lab contacted @ [phone], spoke w/ Antonietta who states that there was maintenance on the machine last night and swab may have been pushed back. States she will check on swab and call me back.
--- NOTE | 2020-09-22 07:44 | PC.NURSE ---
Reviewed chart this AM it was noted that covid swab was not resulted, lab contacted @ [phone], spoke w/ Antonietta who states that there was maintenance on the machine last night and swab may have been pushed back. States she will check on swab and call me back.
--- NOTE | 2020-09-22 07:57 | PC.NURSE ---
Addendum entered by Kate Gil RN 09/22/20 08:16: Sat on 2 L = 90%. Addendum entered by Kate Gil RN 09/22/20 07:57: Pt placed back on nasal cannula, 2 L Original Note: Room air sat @ rest = 87%
[2020-09-22 08:00] VITALS: BP 121/70; PULSE 76; RESP 18; TEMP 36.7; O2SAT 90; O2SAT 95
--- NOTE | 2020-09-22 08:08 | P.PN_ITS ---
Internal Medicine - PN: Subj *Date: 09/22/20 *Time: 08:08 Interval history: Patient feels better with oxygen, no significant dyspnea overnight as long as he is resting and has oxygen. Patient denies any further symptoms of joint pain, skin changes, mucous membrane irritation. Exam Vital signs and Labs for Last 24 Hours: Temp Pulse Resp BP Pulse Ox 98.0 F 64 19 93/53 L 92 L 09/22/20 04:00 09/22/20 04:00 09/22/20 04:00 09/22/20 04:00 09/22/20 04:00 Laboratory Results - last 24 hr 09/21/20 16:00: WBC 19.5 H, RBC 4.57 L, Hgb 13.3 L, Hct 40.6 L, MCV 88.7, MCH 29.2, MCHC 32.9, RDW 13.3, Plt Count 376, MPV 8.0, Neut % (Auto) 86.4 H, Lymph % (Auto) 8.0 L, [place] % (Auto) 4.0, Eos % (Auto) 1.4, Baso % (Auto) 0.2, Neut # (Auto) 16.8 H, Lymph # (Auto) 1.6, [place] # (Auto) 0.8, Eos # (Auto) 0.3, Baso # (Auto) 0.1, Total Counted 100, Neutrophils % (Manual) 86 H, Lymphocytes % (Manual) 9 L, Monocytes % (Manual) 4, Eosinophils % (Manual) 1, Platelet Estimate Normal, RBC Morphology Normal 09/21/20 16:00: Sodium 137, Potassium 3.9, Chloride 106, Carbon Dioxide 25, Anion Gap 9.9, BUN 12, Creatinine 1.00, Estimated Creat Clear 128, Estimated GFR 85, Est GFR ( Amer) 103, Glucose 94, Calcium 8.7, Magnesium 1.7, Total Bilirubin 0.9, AST 42, ALT 49, Alkaline Phosphatase 82, Total Protein 7.4, Albumin 3.9, Globulin 3.5 H, Albumin/Globulin Ratio 1.1 09/21/20 16:00: Mycoplasma pneumon IgM Non-reactive 09/21/20 16:00: Lactate 0.9 I & O for Last 24 hours: Intake & Output 09/19/20 09/20/20 09/21/20 09/22/20 11:59 11:59 11:59 11:59 Intake Total 360 / 360 Balance 360 / 360 Weight 194 lb - Constitutional no acute distress - *Routine HEENT Exam Head: Present: normocephalic Eye: Present: EOMI, PERRL ENT: Present: mucous membranes moist - *Routine Neck Exam Present: supple. Absent: lymphadenopathy - *Routine Respiratory Exam Present: rales (Left lower lobe rhonchi and crackles), rhonchi - *Routine Cardiovascular Exam Present: RRR - *Routine Abdominal Exam Present: soft, normoactive bowel sounds. Absent: tenderness - *Routine Extremities Exam Absent: cyanosis, clubbing, edema - *Routine Skin Exam Present: warm. Absent: rash - *Routine Neurological Exam Present: alert, oriented X3 Assessment and Plan (1) Acute hypoxemic respiratory failure Status: Acute Category: Medical Code(s): J96.01 - Acute respiratory failure with hypoxia (2) Recurrent pneumonia Status: Acute Category: Medical Code(s): J18.9 - Pneumonia, unspecified organism (3) Neutrophilic leukocytosis Status: Acute Category: Medical Code(s): D72.9 - Disorder of white blood cells, unspecified - Assessment and plan all Dx Assessment and Plan for all problems:: On antibiotics, currently stable. Continue to require oxygen. Pulmonary consultation today. Consider discharge if stable on oxygen and staph coverage antibiotics.
--- NOTE | 2020-09-22 13:13 | PC.NURSE ---
RT asked to induce sputum @ this time. States they are in the ED @ this time and then will be up to floor.
--- NOTE | 2020-09-22 14:26 | CT_ITS ---
PROCEDURE: CT ANGIO CHEST CLINCIAL INDICATION: Hypoxia COMPARISON: CT CT ANGIO CHEST from 09/09/2020 TECHNIQUE: IV Contrast: 70ML Isovue 370 Axial images obtained with sagittal and coronal reformats. All CT scans at the facility use one or more dose reduction, viz: automated exposure control, ma/kV adjustment per patient size (including targeted exams where dose is matched to indication, i.e. head), or iterative reconstruction technique. FINDINGS: HEART AND MEDIASTINAL STRUCTURES: No evidence of pulmonary embolus, aortic aneurysm, or aortic dissection.. Scattered small nodes are present in the mediastinum not significantly changed. LUNGS AND PLEURAL SPACES: Previously noted faint ground-glass attenuation of the lungs with a cobblestone appearance is once again noted but has shown some improvement from the previous exam. There is upper lung zone predominance. These changes are slightly more prominent in the right lung compared to the left. Slightly greater ground-glass opacity noted in the right upper lobe posterior along the major fissure and in the left upper lobe posteriorly also along the major fissure. No effusions are apparent.. BONY STRUCTURES: No acute bony abnormalities apparent. UPPER ABDOMEN: Unremarkable. ADDITIONAL FINDINGS: No other significant abnormalities. IMPRESSION: 1. No evidence of pulmonary embolus. 2. There has been some improvement in the mild diffuse ground-glass attenuation with a cobblestone appearance of the lungs as described above. Differential diagnosis once again includes pneumonia, viral/Covid19 pneumonia, resolving pulmonary edema, hypersensitivity pneumonitis, and other less common entities. Dictated by: Joshua Gómez MD 09/22/2020 16:16 Joshua Gómez MD in [facility] 09/22/2020 16:16
--- NOTE | 2020-09-22 15:00 | PC.NURSE ---
called lab and asked about respiratory panel on patient. they stated they had the swab and it would be ran soon. asked about why it was canceled in computed and they stated it was a duplicate. but they had the order and were running it
--- NOTE | 2020-09-22 15:14 | HMH.PULMCON ---
*Admission Date: 09/21/20 *History of present illness: 35-year-old male no significant smoking history recently discharged from the hospital for acute hypoxic respiratory failure likely from viral pneumonia discharged home on oxygen therapy eventually weaned to room air presented hospital again with worsening respiratory failure and pulmonary was called for further management. [facility] History Medical History: Denies:: Diabetes Mellitus Type 1, Diabetes Mellitus Type 2, Seizures *Have you ever received a pneumonia vaccine?: No *Have you received a flu vaccine this season?: No Other Medical History: Reports: Other Laterality Cases: Left: Other Other Surgeries: Yes: Other Amputation: No Fractures: Yes (L ARM) - *Social History Last grade of school completed: Advanced degree Smoking Status: Former smoker Alcohol Intake: current Alcohol Intake Frequency:: holidays/special occasions only Substance Use Type: unknown *Occupational Status:: other Housing: house Household Members: spouse *Travel in the last 8 weeks: None Family Hx:: Diabetes, Heart Attack, Stroke ROS - Cons Reports fatigue, Reports fever(s), Denies anorexia, Denies body ache(s), Denies chills - Eyes Denies blind spots, Denies blurry vision - Card Reports shortness of breath with activity - Resp Respiratory: Denies change in phlegm color, Reports chest congestion, Reports cough, Reports cough with sputum production - GI Gastrointestingal: Denies: abdominal pain, constipation, dyspepsia, dysphagia - Psych Denies abnormal sleep pattern Meds Home Medications Medication Instructions Recorded Confirmed Type Albuterol Sulfate [Proair Hfa] 8.5 gm IH Q4HP PRN #1 hfa.aer.ad 09/11/20 09/22/20 Rx Budesonide/Formoterol Fumarate 2 puffs IH BID 09/22/20 09/22/20 History [Symbicort 160-4.5 Mcg Inhaler] Allergies Allergy/AdvReac Type Severity Reaction Status Date / Time medical tape Allergy rash Uncoded 02/03/19 10:55 around site Exam - Constitutional Constitutional:: Present: no acute distress, comfortable - HENMT Exam HENMT: Present: normocephalic, atraumatic - Eye Exam Eyes:: Present: normal appearance both eyes and related structures - Neck Exam Neck:: Present: normal visual inspection - Respiratory Exam Respiratory:: Present: able to speak in complete sentences, no respiratory distress, normal respiratory effort, crackles Comments: Right lower lung crackles heard - Cardiovascular Exam Cardiac:: Present: regular rhythm, S1, S2 - GI Exam GI:: Present: soft, no hepatosplenomegaly - Skin Exam Skin: Present: warm, no rash - Neurological Exam Neurological: Present: alert, awake, normal cognition - Extremities Exam Extremities: Present: no cyanosis, no clubbing, no edema Internal Medicine - CN: Reslt - Labs CBC & Chem 7: 09/21/20 16:00 09/21/20 16:00 Labs: Short CBC 09/21/20 Range/Units 16:00 WBC 19.5 H (4.8-10.8) K/mm3 Hgb 13.3 L (14.1-18.0) g/dL Hct 40.6 L (42.0-52.0) % Plt Count 376 (142-424) K/mm3 BMP 09/21/20 16:00 Sodium 137 Potassium 3.9 Chloride 106 Carbon Dioxide 25 BUN 12 Creatinine 1.00 Glucose 94 Calcium 8.7 Liver Function 09/21/20 Range/Units 16:00 Total Bilirubin 0.9 (0.2-1.3) mg/dl AST 42 (17-59) U/L ALT 49 (12-78) U/L Alkaline Phosphatase 82 (38-126) U/L Albumin 3.9 (3.5-5.0) g/dl Assessment and Plan (1) Acute hypoxemic respiratory failure Status: Acute Category: Medical Code(s): J96.01 - Acute respiratory failure with hypoxia (2) Recurrent pneumonia Status: Acute Category: Medical Code(s): J18.9 - Pneumonia, unspecified organism (3) Neutrophilic leukocytosis Status: Acute Category: Medical Code(s): D72.9 - Disorder of white blood cells, unspecified - Assessment and plan all Dx Assessment and Plan for all problems:: #Acute hypoxic respiratory failure: 34-year-old recently discharged
[2020-09-22 15:23] VITALS: BP 115/67; PULSE 87; RESP 18; TEMP 36.8; O2SAT 88
--- NOTE | 2020-09-22 18:26 | PC.NURSE ---
pt has rested well since changing of nurses. pt is polite and conversant with staff. nad noted.
--- NOTE | 2020-09-22 18:42 | PC.NURSE ---
GAVE PT SPUTUM CUP UNABLE TO PRODUCE ANY AT THIS TIME
[2020-09-22 18:43] VITALS: O2SAT 95
--- NOTE | 2020-09-22 18:55 | PC.NURSE ---
RA SATS WERE 89% RETURNED PT BACK TO 2L NC
[2020-09-22 20:00] VITALS: BP 120/71; PULSE 75; RESP 18; TEMP 36.7; O2SAT 92
[2020-09-22 20:18] LABS: Adenovirus,PCR Not Detected (NotDetected); Bordetella Pertussis Not Detected (NotDetected); Chlamydophila Pneumoniae, PCR Not Detected (NotDetected); Coronavirus 229E Not Detected (NotDetected); Coronavirus NL63 Not Detected (NotDetected); Coronavirus OC43 Not Detected (NotDetected); Coronovirus HKU1,PCR Not Detected (NotDetected); Human Metapneumovirus Not Detected (NotDetected); Influenza A, PCR Not Detected (NotDetected); Influenza AH1, 2009 Not Detected (NotDetected); Influenza AH1, PCR Not Detected (NotDetected); Influenza AH3,PCR Not Detected (NotDetected); Influenza B, PCR Not Detected (NotDetected); Mycoplasma Pneumoniae, PCR Not Detected (NotDetected); Parainfluenza 1, PCR Not Detected (NotDetected); Parainfluenza 2, PCR Not Detected (NotDetected); Parainfluenza 3, PCR Not Detected (NotDetected); Parainfluenza 4, PCR Not Detected (NotDetected); Respiratory Syncytial Virus Not Detected (NotDetected); Rhinovirus/Enterovirus Not Detected (NotDetected)
[2020-09-23 04:00] VITALS: BP 101/52; PULSE 71; RESP 17; TEMP 36.4; O2SAT 96
--- NOTE | 2020-09-23 04:17 | PC.NURSE ---
No acute changes. Pt has rested well this shift. no c/o soa or discomfort. Pt remains on 2L O2 NC. He states that he hasn't been able to cough up much sputum. VSS. Medications administered per jun. No other concerns. Will continue to monitor.
[2020-09-23 06:00] VITALS: BMI 27.6
[2020-09-23 07:54] VITALS: BP 122/56; PULSE 72; RESP 17; TEMP 36.6; O2SAT 97
--- NOTE | 2020-09-23 08:20 | HMH.DCSUM ---
General - General Admission date:: 09/21/20 Discharge date: 09/23/20 HPI HPI: Mr. Mi is a 35-year-old male who is generally previously healthy. Former smoker. Presented to the office today with increased shortness of breath, fever, fatigue and muscle aches worsening over the past 2 days. Of note he was first diagnosed on September 08 with similar symptoms. Started on Augmentin for 2 days but ended up getting admitted to [facility] for concern for pneumonia, switch to Levaquin and discharged home after 2 days hospitalization and performance of bronchoscopy with BAL. Diagnosed with entero-/rhinovirus respiratory infection. Had been doing well until finishing Levaquin on Sunday. Cough has become more productive with yellow-green sputum. Patient presented to the office with his . States that she has been checking his oxygen regularly but unfortunately he had developed some hypoxemia over the past 48 hours with saturations in the mid 80s at rest and is good his low 90s while awake. Fever T-max 100.8 last night. Has been using Symbicort daily but no albuterol. Received Covid vaccine in June ([employer]) Complains of mild shortness of breath, headaches, body aches. No diarrhea, chest pain, palpitations, lower extremity edema. Admitted for further management of acute hypoxemia and concern for recurrent pneumonia versus post viral pneumonia. Hospital Course Hospital Course: Patient was admitted, placed on IV steroids and broad-spectrum antibiotics. Wheezing improved. Air movement improved. Chest CT scan showed no evidence of further inflammation but resolving groundglass/viral pneumonia appearing elements. Pulmonary consultation reviewed and appreciated. Patient changed to p.o. Augmentin and steroids were continued. Overnight last night he improved very nicely, tolerating room air, eating well, much less dyspnea. Plan will be to discharge home today. We will continue Augmentin, prednisone, I will add Singulair given his history of chronic bronchitis and allergic rhinitis as well as Flonase. Follow-up with pulmonary as scheduled and with me in 5 days. Objective Vital signs: Temp Pulse Resp BP Pulse Ox 97.9 F 72 17 122/56 L 97 09/23/20 07:54 09/23/20 07:54 09/23/20 07:54 09/23/20 07:54 09/23/20 07:54 no acute distress - *Routine HEENT Exam Head: Present: normocephalic Eye: Present: EOMI, PERRL ENT: Present: mucous membranes moist - *Routine Neck Exam Present: supple - *Routine Respiratory Exam Present: rhonchi Comments: Rhonchi in the left middle lung field but vastly improved over admission - *Routine Cardiovascular Exam Present: RRR - *Routine Abdominal Exam Present: soft, normoactive bowel sounds. Absent: tenderness - *Routine Extremities Exam Absent: cyanosis, clubbing, edema - *Routine Skin Exam Present: warm. Absent: rash - Detailed Eye Exam Eyelids: Bilateral normal inspection Results Labs on day of discharge: Labs from last 24 hours 09/22/20 08:13 Chlamy pneumoniae PCR Not detected Adenovirus (PCR) Not detected B. pertussis DNA (PCR) Not detected Coronavirus OC43 (PCR) Not detected Coronavirus HKU1 (PCR) Not detected Coronavirus 229E (PCR) Not detected Coronavirus NL63 (PCR) Not detected Human Metapneumovir PCR Not detected Influenza A (H1) PCR Not detected Influ A (H1N1/09) PCR Not detected Influenza A (H3) PCR Not detected Influenza Type A (PCR) Not detected Influenza Type B (PCR) Not detected M. pneumoniae (PCR) Not detected Parainfluenza 1 (PCR) Not detected Parainfluenza 2 (PCR) Not detected Parainfluenza 3 (PCR) Not detected Parainfluenza 4 (PCR) Not detected RSV (PCR) Not detected Entero/Rhino (PCR) Not detected DS: Diagnosis - Discharge Diagnosis (1) Acute hypoxemic respiratory failure Status: Resolved (2) Recurrent pneumonia Status: Acute (3) Neutrophilic leukocytosis Sta
--- NOTE | 2020-09-23 09:24 | HMH.PULMPN ---
Internal Medicine - PN: Subj *Date: 09/23/20 *Time: 09:24 Interval history: No acute respirations overnight. Patient respiratory status improved, today on room air saturating 98% Exam - Constitutional Constitutional:: Present: no acute distress, comfortable - HENMT Exam HENMT: Present: normocephalic, atraumatic - Eye Exam Eyes:: Present: normal appearance both eyes and related structures - Neck Exam Neck:: Present: normal visual inspection - Respiratory Exam Respiratory:: Present: able to speak in complete sentences, normal respiratory effort - Cardiovascular Exam Cardiac:: Present: S1, S2 - GI Exam GI:: Present: soft - Skin Exam Skin: Present: no rash - Neurological Exam Neurological: Present: alert - Extremities Exam Extremities: Present: no cyanosis, no clubbing, no edema Assessment and Plan (1) Acute hypoxemic respiratory failure Status: Resolved Category: Medical Code(s): J96.01 - Acute respiratory failure with hypoxia (2) Recurrent pneumonia Status: Acute Category: Medical Code(s): J18.9 - Pneumonia, unspecified organism (3) Neutrophilic leukocytosis Status: Acute Category: Medical Code(s): D72.9 - Disorder of white blood cells, unspecified - Assessment and plan all Dx Assessment and Plan for all problems:: #Acute hypoxic respiratory failure: # Organizing PNM: # H/O Viral Pneumonia: 34-year-old recently discharged in the hospital after viral pneumonia presented to hospital with worsening respiratory failure. Patient recently discharged home on 2 L nasal eventually weaned to room air and saturating 95% presented to the clinic patient said that he remained stable until Sunday when he noted to have worsening respiratory distress and found to be hypoxic. Patient during his last hospital admission positive for enterorhinovirus. BAL cultures negative so far. Patient also had autoimmune work-up including YARI, ANCA RF and CCP all resulted negative. Repeat COVID PCR negative. Resp viral panel negative Repeat CTA showed improvement in her GGO. Resp status improved - this morning on RA saturating 98% Plan: -Augmentin 875 BID x 5 days -Prednisone 40mg daily -F/U final BC and Sputum Gram stain cultures -Continue Symbicort PRN and will evaluate for the possibility of asthma as an outpatient basis once this acute episode subside. #Thank you for involving pulmonary in this patient care. Please call with any questions or concerns. Will follow in clinic 2 weeks
[2020-09-24 13:52] LABS: Body Fluid Culture, Sterile Not indicated. (.); Legionella pneumophila Urinary Negative (Negative); Organism ID Not indicated. (.); Specimen Source Urine (.); Streptococcus pneumoniae Ag Negative (Negative)
== END 2020-09-23 09:52 | disposition home or self-care (01) ==
PROVIDERS: Internal Medicine Pulmonary Disease; Admitting Provider Internal Medicine Adolescent Medicine; PCP Internal Medicine Adolescent Medicine; Visit Provider Internal Medicine Adolescent Medicine
DX: J18.9 Pneumonia, unspecified organism (principal); Z87.891 Personal history of nicotine dependence; J96.01 Acute respiratory failure with hypoxia; Z20.822 Contact with and (suspected) exposure to COVID-19; J42 Unspecified chronic bronchitis; J30.9 Allergic rhinitis, unspecified
CPT/HCPCS: 71046; 71275; 80053; 83605; 83735; 85007; 85025; 86738; 87040; 87486; 87581; 87633; 87798; 87899; 94640; 94760; 94761; G0378; J0456; Q9967; U0003

== ENCOUNTER → 2020-12-22 12:49 | Outpatient (CLI) | payer BC, SELFPAY ==
[2020-12-22 13:30] VITALS: PULSE 63; PULSE 68
== END ==
PROVIDERS: PCP Internal Medicine Adolescent Medicine; Visit Provider Internal Medicine Pulmonary Disease
DX: R06.09 Other forms of dyspnea (principal)
CPT/HCPCS: 94060; 94618; 94640; 94726; 94729

== ENCOUNTER → 2021-01-10 17:05 | Outpatient (CLI) | payer BC, SELFPAY | PROVIDERS: PCP Internal Medicine Adolescent Medicine; Visit Provider Nurse Practitioner | DX: Z20.822 Contact with and (suspected) exposure to COVID-19 (principal); U07.1 COVID-19 | CPT/HCPCS: C9803; U0003; U0005 ==

== ENCOUNTER → 2021-04-04 08:05 | Outpatient (CLI) | payer BC, SELFPAY | PROVIDERS: PCP Internal Medicine Adolescent Medicine; Visit Provider Nurse Practitioner | DX: Z20.822 Contact with and (suspected) exposure to COVID-19 (principal) | CPT/HCPCS: C9803; U0003; U0005 ==

== ENCOUNTER → 2021-05-31 08:15 | Outpatient (CLI) | payer BC, SELFPAY ==
[2021-06-01 08:32] LABS: Covid-19 Nasal PCR Sendout Lex NOT DETECTED
== END ==
PROVIDERS: Visit Provider Nurse Practitioner
DX: Z20.822 Contact with and (suspected) exposure to COVID-19 (principal)
CPT/HCPCS: C9803; U0004; U0005

== ENCOUNTER → 2021-06-01 12:33 | Outpatient (CLI) | payer BC, SELFPAY ==
[2021-06-02 09:40] LABS: Covid-19 Nasal PCR Sendout Lex NOT DETECTED
== END ==
PROVIDERS: PCP Internal Medicine Adolescent Medicine; Visit Provider Nurse Practitioner
DX: Z20.822 Contact with and (suspected) exposure to COVID-19 (principal)
CPT/HCPCS: C9803; U0004; U0005

== ENCOUNTER → 2021-09-20 13:01 | Outpatient (POV) | payer BC, SELFPAY | PROVIDERS: Visit Provider Dermatology | DX: Z00.00 Encounter for general adult medical examination without abnormal findings (principal) ==

== ENCOUNTER 2023-01-20 16:51 | Emergency (ER) | payer OTHER, SELFPAY ==
[2023-01-20 17:04] VITALS: BP 130/83; PULSE 121; RESP 19; TEMP 36.8; O2SAT 95; BMI 25.1
--- NOTE | 2023-01-20 17:20 | PC.NURSE ---
pt walked out of room. began to walk towards ambulance bay doors. staff instructed pt he could not leave out those doors. pt stated he was walking outside to get someone. but proceeded to leave the ER and walk away.
[2023-01-20 17:21] VITALS: BP 0/0; PULSE 0; RESP 0; TEMP -17.7; TEMP 0
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
== END 2023-01-20 17:22 | disposition left against medical advice (07) ==
LOC: ER 17:15
PROVIDERS: Emergency Provider Emergency Medicine; PCP Internal Medicine Adolescent Medicine
DX: M79.641 Pain in right hand (principal); R22.41 Localized swelling, mass and lump, right lower limb; W22.09XA Striking against other stationary object, initial encounter; Z87.891 Personal history of nicotine dependence
CPT/HCPCS: 99282

== ENCOUNTER 2023-01-20 17:43 | Emergency (ER) | payer OTHER, SELFPAY ==
[2023-01-20 17:45] VITALS: BP 116/83; PULSE 121; RESP 18; TEMP 36.6; O2SAT 98; BMI 31.2
--- NOTE | 2023-01-20 17:49 | XR_ITS ---
PROCEDURE INFORMATION: Exam: XR Right Hand Exam date and time: 01/20/2023 5:56 PM Age: 37 years old Clinical indication: Pain; Hand; Right; Additional info: Pain and swelling TECHNIQUE: Imaging protocol: Radiologic exam of the right hand. Views: 3 or more views. COMPARISON: No relevant prior studies available. FINDINGS: Bones/joints: Normal. Soft tissues: Normal. IMPRESSION: No acute findings.
--- NOTE | 2023-01-20 18:09 | PC.NURSE ---
Bethel HIGGINS APRN SPEAKING TO [employer] TO MAKE SURE PATIENT IS OK TO BE IN [facility] SINCE WE ARE JUST SEEING HIM FOR HIS HAND. [place] STATES IT IS OK
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
[2023-01-20 18:29] VITALS: BP 116/83; PULSE 121; RESP 18; TEMP 36.6; O2SAT 98
--- NOTE | 2023-01-20 19:04 | PC.NURSE ---
PATIENT SENT TO ER PER Bethel HIGGINS APRN FOR FURTHER EVALUATION. PATIENT AMBULATED TO ER WITH ASSIST BY Bethel HIGGINS APRN
[2023-01-20 19:20] VITALS: BP 129/95; PULSE 111; RESP 18; TEMP 36.8; O2SAT 94; BMI 31.5
--- NOTE | 2023-01-20 19:21 | PC.NURSE ---
in room, talking with patient at this time.
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
[2023-01-20 19:41] VITALS: BP 129/95; PULSE 111; RESP 18; TEMP 36.8; O2SAT 64
== END 2023-01-20 19:42 | disposition home or self-care (01) ==
LOC: UTC 18:54 → ER 19:06
PROVIDERS: Emergency Provider Emergency Medicine; PCP Internal Medicine Adolescent Medicine
DX: F32.A Depression, unspecified (principal); F10.90 Alcohol use, unspecified, uncomplicated; M79.641 Pain in right hand; Z87.891 Personal history of nicotine dependence
CPT/HCPCS: 73130; 99283

== ENCOUNTER 2024-02-26 07:02 | Outpatient (CLI) | payer BC, SELFPAY ==
[2024-02-26 07:28] LABS: Basophils # 0.1 K/mm3 (0-0.2); Basophils % 1.4 % (0.1-2.0); Eosinophils # 0.2 K/mm3 (0.0-0.4); Hematocrit 41.4 % (42.0-52.0); Hemoglobin 13.9 g/dL (14.1-18.0); Lymphocytes # 2.1 K/mm3 (0.7-4.5); Lymphocytes % 34.4 % (10-50); Mean Corpuscular HGB Conc 33.6 g/dL (31.8-35.4); Mean Corpuscular Hemoglobin 29.4 pg (27.0-31.2); Mean Corpuscular Volume 87.6 fl (80-94); Mean Platelet Volume 7.2 fl (7.4-10.4); Monocytes # 0.4 K/mm3 (0.1-1.0); Monocytes % 6.2 % (1.7-9.3); Neutrophils # 3.3 K/mm3 (1.8-7.8); Neutrophils % 53.9 % (37.0-80.0); Platelet Count 335 K/mm3 (142-424); Red Blood Count 4.73 M/mm3 (4.60-6.20); Red Cell Distribution Width 13.8 % (11.5-17.5); White Blood Count 6.2 K/mm3 (4.8-10.8)
[2024-02-26 07:53] LABS: Alanine Aminotransferase 31 U/L (12-78); Albumin Level 4.3 g/dl (3.5-5.0); Albumin/Globulin Ratio 1.7 (1.1-1.8); Alkaline Phosphatase 59 U/L (38-126); Anion Gap 12.1 mEq/L (5-15); Aspartate Amino Transferase 31 U/L (17-59); Bilirubin,Total 0.7 mg/dl (0.2-1.3); Blood Urea Nitrogen 16 mg/dl (9-20); Calcium 8.9 mg/dl (8.4-10.2); Carbon Dioxide 26 mmol/L (22.0-30.0); Chloride 108 mmol/L (98-107); Chol/HDL Ratio 6.6 (1-3.5); Cholesterol 218 mg/dl (140-200); Estimated Glomerular Filt Rate 84 ml/min (>60); GFR (African American) 101 ML/MIN (>60); Globulin 2.6 g/dL (1.3-3.2); Glucose 92 mg/dl (74-100); HDL Cholesterol 33 mg/dl (40-60); Potassium 4.1 mmoL/L (3.5-5.1); Sodium 142 mmol/L (136-145); Total Protein,Serum 6.9 g/dl (6.3-8.2); Triglycerides 243 mg/dl (30-150); VLDL Cholesterol 49 mg/dL (0-40)
[2024-02-26 08:03] LABS: Direct LDL Cholesterol 147.88 mg/dL (100-129)
[2024-02-27 11:45] LABS: Iron 107 ug/dL (49-181)
[2024-02-27 12:18] LABS: Vitamin B12 513 pg/mL (239-931)
[2024-02-27 12:21] LABS: Ferritin 45.4 ng/ml (17.9-464)
== END 2024-02-26 23:59 | disposition home or self-care (01) ==
PROVIDERS: PCP Nurse Practitioner Family; Visit Provider Nurse Practitioner Family
DX: Z00.00 Encounter for general adult medical examination without abnormal findings (principal); D64.9 Anemia, unspecified
CPT/HCPCS: 36415; 80053; 80061; 82607; 82728; 82746; 83540; 85025